=== PATIENT | female | born 1960 | race Caucasian/White ===

== ENCOUNTER → 2016-08-20 | Outpatient (CLI) | payer BC ==
[~2016-08-20] MED LIST: AMBIEN CR12.5 MG PO; BENICAR20 MG PO; Benicar PO; LEVOTHYROXINE75 MCG PO; Levothroid,Synthroid PO; ONDANSETRON4 MG/2 ML SL; PROTONIX40 MG PO; Protonix PO; VITAMIN D1000 UNIT PO; Vicodin,Norco 5/325 PO; Vitamin D PO
== END | disposition home or self-care (01) ==
LOC: AMB 08-18 09:00
PROC: 0JB70ZZ Excision of Back Subcutaneous Tissue and Fascia, Open Approach (ICD-10-PCS; principal; 2016-08-20)
DX: D17.1 Benign lipomatous neoplasm of skin and subcutaneous tissue of trunk (principal)
CPT/HCPCS: 88304

== ENCOUNTER 2017-08-25 15:22 | Emergency (ER) | payer BC ==
[~2017-08-25] VITALS: Ht 154.9 cm; Wt 73.2 kg
[2017-08-25 16:14] LABS: HEMATOCRIT 43.8 % (36.0-46.0); HEMOGLOBIN 14.2 G/DL (11.9-15.5); MCH 29.6 PG (29.0-34.0); MCHC 32.4 G/DL (30.0-36.0); MCV 91.4 FL (83-99); PLATELET COUNT 297 K/uL (156-360); RBC DIS.WIDTH-CV 13.2 % (11.8-14.6); RBC DIS.WIDTH-SD 44.5 % (39-53); RED BLOOD COUNT 4.79 M/uL (3.80-5.20); WHITE BLOOD COUNT 8.1 K/uL (4.1-10.2)
[2017-08-25 16:23] LABS: CHLORIDE 108 mEq/L (99-109); SODIUM 143 mEq/L (136-147)
[2017-08-25 16:25] LABS: GLUCOSE 86 mg/dL (70-99)
[2017-08-25 16:29] LABS: CREATININE 0.8 mg/dL (0.6-1.3); GFR ESTIMATE (CALCULATED) > 59 mL/min/; UREA NITROGEN (BUN) 14 mg/dL (9-23)
[2017-08-25 17:21] LABS: PTT 29.4 SEC (25-37)
[2017-08-25 17:46] LABS: TROP-I INTERPRETATION NEGATIVE; TROPONIN-I < 0.01 ng/mL (0.0-0.30)
[2017-08-25] MEDS ORDERED: CARAFATE100 MG/ML PO (20:25)
[2017-08-25 21:03] VITALS: BP 167/92
== END 2017-08-25 21:04 | disposition home or self-care (01) ==
LOC: EME 15:22
PROVIDERS: Emergency Medicine
DX: K29.70 Gastritis, unspecified, without bleeding (principal); K92.0 Hematemesis; K44.9 Diaphragmatic hernia without obstruction or gangrene; K43.9 Ventral hernia without obstruction or gangrene; R00.1 Bradycardia, unspecified; I10 Essential (primary) hypertension; Z98.84 Bariatric surgery status; Z90.710 Acquired absence of both cervix and uterus; Z88.2 Allergy status to sulfonamides; Z88.5 Allergy status to narcotic agent
CPT/HCPCS: 74177; 80048; 84484; 85027; 85610; 85730; 86850; 86900; 86901; 93005; 99281; 99285; C9113; J7030

== ENCOUNTER → 2017-09-22 | Outpatient (CLI) | payer BC ==
[~2017-09-22] VITALS: Ht 154.9 cm; Wt 72.6 kg
[~2017-09-22] MED LIST changes: +CALCITRATE + D1 EACH PO; +CARAFATE100 MG/ML PO; +VITAMIN B-122500 MCG SL
== END | disposition home or self-care (01) ==
LOC: AMB 09:30
PROC: 0DJ08ZZ Inspection of Upper Intestinal Tract, Via Natural or Artificial Opening Endoscopic (ICD-10-PCS; principal; 2017-09-22)
DX: K44.9 Diaphragmatic hernia without obstruction or gangrene (principal); K21.9 Gastro-esophageal reflux disease without esophagitis; R11.10 Vomiting, unspecified; Z98.84 Bariatric surgery status; I10 Essential (primary) hypertension; E03.9 Hypothyroidism, unspecified; E78.5 Hyperlipidemia, unspecified